=== PATIENT | male | born 1955 | race African-American/Black ===

== ENCOUNTER → 2020-12-19 | Outpatient (CLI) | payer MEDICAID, OTHER ==
[~2020-12-19] MED LIST: ASPIRIN EC81 MG PO; ATORVASTATIN CA20 MG PO; BRILINTA 90 MG90 MG PO; COZAAR 25MG TAB25 MG PO; IBU800 MG PO; KEPPRA 500 MG500 MG PO; METOPROLOL SUCC25 MG PO; NITROSTAT0.4 MG SL; PERCOCET 5-3251 EACH PO
== END ==
LOC: HEART 5 12-17 08:00
DX: R94.31 Abnormal electrocardiogram [ECG] [EKG] (principal)
CPT/HCPCS: 78452; A9502

== ENCOUNTER → 2020-12-27 | Outpatient (CLI) | payer OTHER, MEDICAID ==
[2020-12-27 10:53] LABS: HEMOGLOBIN 13.8 gm/dl (14.0-17.5); RED BLOOD COUNT 4.96 M/UL (4.20-5.50); WHITE BLOOD COUNT 4.9 K/UL (4.5-11.0)
[2020-12-27 11:08] LABS: BUN/CREATININE RATIO 16 (0-10)
== END ==
LOC: OPSV2 09:00 → EDSTATUS 09:00 → OPSV2 09:50
PROVIDERS: Orthopaedic Surgery
DX: Z01.818 Encounter for other preprocedural examination (principal); M17.12 Unilateral primary osteoarthritis, left knee
CPT/HCPCS: 71046; 80048; 81001; 85025; 87081; 93005

== ENCOUNTER 2021-01-03 08:02 | Day surgery (SDC) | payer OTHER, MEDICAID ==
[~2021-01-03] VITALS: Ht 172.7 cm; Wt 86.6 kg
[~2021-01-03 08:02] MED LIST changes: -ASPIRIN EC81 MG PO; -ATORVASTATIN CA20 MG PO; -BRILINTA 90 MG90 MG PO; -COZAAR 25MG TAB25 MG PO; -KEPPRA 500 MG500 MG PO; -METOPROLOL SUCC25 MG PO; -NITROSTAT0.4 MG SL
[2021-01-03 08:51] LABS: BUN/CREATININE RATIO 13 (0-10)
[2021-01-04 03:34] LABS: HEMOGLOBIN 11.3 gm/dl (14.0-17.5); RED BLOOD COUNT 4.14 M/UL (4.20-5.50); WHITE BLOOD COUNT 13.2 K/UL (4.5-11.0)
== END 2021-01-04 13:31 | disposition home or self-care (01) ==
LOC: OR 08:02 → EDSTATUS 10:00 → M/S 14:56 → OR 01-04 13:31
PROVIDERS: Orthopaedic Surgery
PROC: 3E0T3BZ Introduction of Anesthetic Agent into Peripheral Nerves and Plexi, Percutaneous Approach (ICD-10-PCS; 2021-01-03)
PROC: 3E0T3BZ Introduction of Anesthetic Agent into Peripheral Nerves and Plexi, Percutaneous Approach (ICD-10-PCS; 2021-01-03)
PROC: 0SRD0J9 Replacement of Left Knee Joint with Synthetic Substitute, Cemented, Open Approach (ICD-10-PCS; principal; 2021-01-03 10:00)
DX: M17.12 Unilateral primary osteoarthritis, left knee (principal); G89.18 Other acute postprocedural pain; I25.2 Old myocardial infarction; I25.10 Atherosclerotic heart disease of native coronary artery without angina pectoris; E78.5 Hyperlipidemia, unspecified; Z20.822 Contact with and (suspected) exposure to COVID-19; Z95.5 Presence of coronary angioplasty implant and graft
CPT/HCPCS: 36415; 73560; 80048; 85025; 93005; 97116-GP-CQ; 97162; 97166; 97530; 97535; C1713; C1776; J0171; J0690; J0735; J1100; J1885; J2001; J2250; J2270; J2405; J2704; J2795; J3010; J7030; J7120

== ENCOUNTER 2021-01-07 11:56 | Inpatient (IN) | payer MEDICARE, MEDICAID, OTHER ==
[~2021-01-07] VITALS: Ht 167.6 cm; Wt 84.4 kg
[2021-01-07 12:55] LABS: HEMOGLOBIN 11.1 gm/dl (14.0-17.5); RED BLOOD COUNT 4.03 M/UL (4.20-5.50)
[2021-01-07 13:18] LABS: BUN/CREATININE RATIO 24 (0-10)
--- NOTE | 2021-01-08 04:46 | NUR ---
MD informed that patient experiencing Intermittent Left sided intermittent sharp chest pain. No radiation. Pain 02/15. Cardacs negative x 2. MD informed to order Nitro prn at this time. WCTM
[2021-01-08 05:40] LABS: RED BLOOD COUNT 3.68 M/UL (4.20-5.50)
[2021-01-08 05:43] LABS: WHITE BLOOD COUNT 5.2 K/UL (4.5-11.0)
[2021-01-08 06:07] LABS: BUN/CREATININE RATIO 27 (0-10)
--- NOTE | 2021-01-08 22:26 | NUR ---
Patient requested pain medicine around 2029. I let the patient know that it was not time yet for another dose of medication. Patient got visibly upset and stated "I will get my pain medicine." I told the patient his medicine was ordered every 6 and 8 hours and it was too early for me to administer at this time. I told the patient I could call the doctor to try to get something else ordered for him since it was too early for his pain medicine. I called Dr. Tineo and Dr. Tineo said he could have nitro prn but I told him it wasn't chest pain, it was pain in his left knee. Dr. Tineo then stated that "He can wait until the next dose" no new orders.
--- NOTE | 2021-01-09 09:16 | NUR ---
PT LEFT FOR KILN LOADER AT THIS TIME NOTED PER STRETCHER AND ON INSURANCE ASSOCIATE
--- NOTE | 2021-01-09 12:23 | NUR ---
CALLED REPORT TO [facility] ON PCU
[2021-01-09 13:24] LABS: BUN/CREATININE RATIO 23 (0-10)
[2021-01-09 21:00] LABS: HEMOGLOBIN 10.3 gm/dl (14.0-17.5); RED BLOOD COUNT 3.71 M/UL (4.20-5.50); WHITE BLOOD COUNT 6.6 K/UL (4.5-11.0)
[2021-01-09 21:18] LABS: BUN/CREATININE RATIO 14 (0-10)
[2021-01-10 02:29] LABS: HEMOGLOBIN 9.9 gm/dl (14.0-17.5); RED BLOOD COUNT 3.59 M/UL (4.20-5.50); WHITE BLOOD COUNT 7.4 K/UL (4.5-11.0)
[2021-01-10 02:49] LABS: BUN/CREATININE RATIO 16 (0-10)
--- NOTE | 2021-01-10 16:02 | NUR ---
REPORT TO CECY BOWIE ON MS4, PATIENT GOING TO ROOM 4101
[2021-01-11 05:57] LABS: HEMOGLOBIN 10.1 gm/dl (14.0-17.5); RED BLOOD COUNT 3.82 M/UL (4.20-5.50); WHITE BLOOD COUNT 7.4 K/UL (4.5-11.0)
[2021-01-11 06:16] LABS: BUN/CREATININE RATIO 23 (0-10)
--- NOTE | 2021-01-11 10:09 | NUR ---
0918- SPIRAL RUNNER CALLED IN BACK HALLWAY ON PATIENT. PATIENT FOUND LYING ON RIGHT SIDE WITH HANDS UNDER HEAD. PATIENT STATED HE TRIPPED OVER HIS CANE AND FELL IN THE FLOOR. DENIES ANY COMPLAINTS AT THIS TIME. PATIENT ROLLED OVER AND ASSESSED. ASSISTED UP INTO WHEELCHAIR AND BACK TO ROOM TO BED. VITAL SIGNS STABLE. DR. PEREZ NOTIFIED IN ROOM AT THIS TIME. COMPLAINTS WITH RIGHT HIP PAIN. NEW ORDER TO OBTAIN XRAY OF BILATERAL KNEES AND RIGHT HIP. WILL CONTINUE TO MONITOR.
[2021-01-11] MEDS ORDERED: COZAAR 25MG TAB25 MG PO ×2 (14:31→22:43)
[2021-01-11] MEDS ORDERED: BRILINTA 90 MG90 MG PO ×2 (14:31→22:43)
[2021-01-11] MEDS ORDERED: ASPIRIN EC81 MG PO ×2 (14:31→22:43)
[2021-01-11] MEDS ORDERED: METOPROLOL SUCC25 MG PO ×2 (14:31→22:43)
[2021-01-11] MEDS ORDERED: ATORVASTATIN CA20 MG PO ×2 (14:31→22:43)
[2021-01-11] MEDS ORDERED: KEPPRA 500 MG500 MG PO ×2 (14:31→22:43)
--- NOTE | 2021-01-11 18:36 | NUR ---
[id number] Discharge order wrote for patient to [place] home. Patient stated he wasnt going home today and would not sign the papers. Dr. Jo aware and came to floor to talk with patient. Discharge papers worked up and took into room for patient to sign. Patient refused to sign papers and stated he wasnt going anywhere. Educated patient that he was discharged from medical, cardiac and ortho standpoint. Continues to refuse. cutting and splicing supervisor aware and on the floor to talk with patient. Papers signed after patient talking with warehouse receiver. While signing discharge papers patient stated "thats not my signature, that could be anyones signature." Patient educated on new medications and follow up care. Verbalized understanding. Voucher ticket given for brilinta medication. Denies any questions or concerns at this time. Patient seen walking out with ayla in hand by sean. Attempted to get patient to ride down in wheelchair, he refused. Followed patient to parking lot to make sure he made it to his car safely. talent acquisition relationship manager pulled car to front and patient entered safely.
[2021-01-11] MEDS ORDERED: NITROSTAT0.4 MG SL (22:44)
== END 2021-01-11 17:03 | disposition home health service (06) | DRG 247 ==
LOC: ER1 11:56 → CDU 16:52 → MED SURG 4 16:52 → PROG CARE 01-09 11:02 → MED SURG 4 01-09 11:02 → PROG CARE 01-09 12:03 → MED SURG 4 01-10 15:42
PROVIDERS: Emergency Medicine; Internal Medicine Interventional Cardiology; Physician Assistant; ADMIT Family Medicine
PROC: 4A023N7 Measurement of Cardiac Sampling and Pressure, Left Heart, Percutaneous Approach (ICD-10-PCS; principal; 2021-01-09)
PROC: 027034Z Dilation of Coronary Artery, One Artery with Drug-eluting Intraluminal Device, Percutaneous Approach (ICD-10-PCS; 2021-01-09)
PROC: B211YZZ Fluoroscopy of Multiple Coronary Arteries using Other Contrast (ICD-10-PCS; 2021-01-09)
PROC: B215YZZ Fluoroscopy of Left Heart using Other Contrast (ICD-10-PCS; 2021-01-09)
PROC: 4A00X4Z Measurement of Central Nervous Electrical Activity, External Approach (ICD-10-PCS; 2021-01-10)
DX: I25.110 Atherosclerotic heart disease of native coronary artery with unstable angina pectoris (principal); R56.9 Unspecified convulsions; W01.0XXA Fall on same level from slipping, tripping and stumbling without subsequent striking against object, initial encounter; Z96.652 Presence of left artificial knee joint; F17.210 Nicotine dependence, cigarettes, uncomplicated; R73.9 Hyperglycemia, unspecified; M25.551 Pain in right hip; Z20.822 Contact with and (suspected) exposure to COVID-19; M25.561 Pain in right knee; I49.1 Atrial premature depolarization; I10 Essential (primary) hypertension; M25.562 Pain in left knee; Y92.232 Corridor of hospital as the place of occurrence of the external cause; D64.9 Anemia, unspecified; Z80.0 Family history of malignant neoplasm of digestive organs; Z85.46 Personal history of malignant neoplasm of prostate; Z90.49 Acquired absence of other specified parts of digestive tract; Z79.82 Long term (current) use of aspirin; Z79.899 Other long term (current) drug therapy; Z91.81 History of falling
CPT/HCPCS: ECHO; 36415; 70450; 70551; 71045; 73502; 73560; 80048; 80053; 82550; 82553; 82962; 83036; 83735; 83874; 84100; 84146; 84484; 85025; 85027; 85347; 85379; 93005; 93306; 95816; 96372; 96374; 97110; 97116-GP-CQ; 97162; 97165; 99152; 99153; 99285; C1725; C1769; C1874; C1887; C9600; G0378; J0461; J1170; J1644; J1650; J1953; J2250; J2270; J3010; Q9967; U0002

== ENCOUNTER 2021-01-11 18:24 | Emergency (ER) | payer MEDICAID, OTHER ==
[~2021-01-11 18:24] MED LIST changes: +ASPIRIN EC81 MG PO; +ATORVASTATIN CA20 MG PO; +BRILINTA 90 MG90 MG PO; +COZAAR 25MG TAB25 MG PO; +KEPPRA 500 MG500 MG PO; +METOPROLOL SUCC25 MG PO
[2021-01-11 19:05] LABS: HEMOGLOBIN 10.9 gm/dl (14.0-17.5); RED BLOOD COUNT 4.06 M/UL (4.20-5.50)
[2021-01-11 19:08] LABS: WHITE BLOOD COUNT 10.5 K/UL (4.5-11.0)
[2021-01-11 19:27] LABS: BUN/CREATININE RATIO 22 (0-10)
[2021-01-11] MEDS ORDERED: ASPIRIN EC81 MG PO (22:43)
[2021-01-11] MEDS ORDERED: BRILINTA 90 MG90 MG PO (22:43)
[2021-01-11] MEDS ORDERED: COZAAR 25MG TAB25 MG PO (22:43)
[2021-01-11] MEDS ORDERED: KEPPRA 500 MG500 MG PO (22:43)
[2021-01-11] MEDS ORDERED: METOPROLOL SUCC25 MG PO (22:43)
[2021-01-11] MEDS ORDERED: ATORVASTATIN CA20 MG PO (22:43)
[2021-01-11] MEDS ORDERED: NITROSTAT0.4 MG SL (22:44)
== END 2021-01-11 23:04 | disposition home or self-care (01) ==
LOC: ER1 18:24
PROVIDERS: Nurse Practitioner
DX: R07.9 Chest pain, unspecified (principal); I25.2 Old myocardial infarction; I10 Essential (primary) hypertension; Z85.46 Personal history of malignant neoplasm of prostate; F17.290 Nicotine dependence, other tobacco product, uncomplicated; Z95.5 Presence of coronary angioplasty implant and graft
CPT/HCPCS: 71045; 80053; 82550; 82553; 83735; 83874; 84484; 85025; 93005; 99285

== ENCOUNTER 2021-01-22 15:37 | Observation (INO) | payer MEDICAID, OTHER ==
[~2021-01-22] VITALS: Ht 167.6 cm; Wt 81.6 kg
[~2021-01-22 15:37] MED LIST changes: +NITROSTAT0.4 MG SL
[2021-01-22 16:01] LABS: HEMOGLOBIN 10.8 gm/dl (14.0-17.5); RED BLOOD COUNT 3.85 M/UL (4.20-5.50); WHITE BLOOD COUNT 5.1 K/UL (4.5-11.0)
[2021-01-22 16:34] LABS: BUN/CREATININE RATIO 20 (0-10)
[2021-01-23 10:20] LABS: BUN/CREATININE RATIO 25 (0-10)
--- NOTE | 2021-01-23 18:12 | NUR ---
[facility] SAFETY CONCERNS RELATED TO PATIENT WALKING FREQUENTLY. PATIENT REFUSES BED ALARM AND REDUSES TO STAY SEATED OR IN BED. PATIENT IS ALERT AND ORIENTED.
== END 2021-01-24 12:41 | disposition home or self-care (01) ==
LOC: ER1 15:37 → CDU 20:29 → M/S 20:29
PROVIDERS: Internal Medicine; Physician Assistant; ADMIT Internal Medicine
DX: R07.89 Other chest pain (principal); I25.10 Atherosclerotic heart disease of native coronary artery without angina pectoris; I10 Essential (primary) hypertension; E87.6 Hypokalemia; E78.5 Hyperlipidemia, unspecified; R77.8 Other specified abnormalities of plasma proteins; G40.909 Epilepsy, unspecified, not intractable, without status epilepticus; Z20.822 Contact with and (suspected) exposure to COVID-19; Z96.652 Presence of left artificial knee joint; Z95.1 Presence of aortocoronary bypass graft; Z85.46 Personal history of malignant neoplasm of prostate; Z87.891 Personal history of nicotine dependence; Z79.82 Long term (current) use of aspirin; Z79.899 Other long term (current) drug therapy
CPT/HCPCS: 36415; 71045; 80048; 80053; 82550; 82553; 83874; 84484; 85025; 85379; 93005; 93971; 99285; G0378; Q9967; U0002

== ENCOUNTER 2021-02-11 13:09 | Emergency (ER) | payer OTHER ==
[2021-02-11 14:22] LABS: HEMOGLOBIN 12.7 gm/dl (14.0-17.5); RED BLOOD COUNT 4.51 M/UL (4.20-5.50); WHITE BLOOD COUNT 3.8 K/UL (4.5-11.0)
[2021-02-11 15:21] LABS: BUN/CREATININE RATIO 20 (0-10)
== END 2021-02-11 21:40 | disposition home or self-care (01) ==
LOC: ER1 13:09
PROVIDERS: Family Medicine
DX: I20.8 Other forms of angina pectoris (principal)
CPT/HCPCS: 71045; 80053; 82550; 82553; 83874; 83880; 84484; 85025; 85379; 85652; 86140; 93005; 99285; J7030; Q9967